=== PATIENT | male | born 1995 | race Caucasian/White ===

== ENCOUNTER 2016-10-05 16:06 | Emergency (ER) | payer BC ==
[2016-10-05 16:15] VITALS: BP 124/65
--- NOTE | 2016-10-05 16:24 | UC ---
Knee Pain HPI - HPI Summary HPI Summary: The patient comes in today for: 1. Left knee pain: Onset: Yesterday. Palliative/Provocative: Walking makes it worse. Twisting the knee will make it worse. Quality: Stiffness, pressure Region: left knee Severity: 2/10 at rest. Time: Constant. Associated symptoms: Event: While playing basketball yesterday, he jumped up and when he landed it felt like "500 pounds hitting" his leg. He collapsed. He got up and walked over to the side. Eventually, he limped to his car. He did put ice on it, elevated, it and ANAI wrap. He took 800 mg of ibuprofen which helped yesterday. He noticed that there was clicking with knee movement. No locking up or giving away. Previous injury: Strained MCL about 6 months ago. * - History of Current Complaint Chief Complaint: UCLowerExtremity Stated Complaint: LEFT KNEE INJURY Time Seen by Provider: 10/05/16 16:13 Hx Obtained From: Patient, Family/Dental Sales Representative - Allergies/Home Medications Allergies/Adverse Reactions: Allergies Allergy/AdvReac Type Severity Reaction Status Date / Time No Known Allergies Allergy Verified 10/05/16 16:14 Home Medications: Home Medications Naproxen TAB* [Naprosyn 250 mg TAB*] 500 mg PO ONCE 10/05/16 [History Confirmed 10/05/16] PMH/Surg Hx/FS Hx/Imm Hx Previously Healthy: Yes Other Endocrine History: No DM, throid disease. Other Cardiovascular History: No heart disease or HTN. Other Respiratory History: No asthma, pe Other GI/ History: No GERD, ulcers or renal failure. Other Neurological History: No seizures, or chronic headache. Other Psychological History: No depression, anxiety Other Cancer History: No cancer. Other History Of: Negative For: HIV, Hepatitis B, Hepatitis C, Anticoagulant Therapy - Surgical History Surgical History: None - Family History Known Family History: Negative: Cardiac Disease, Hypertension - Social History Occupation: Employed Full-time - needs work note., Student Alcohol Use: Rare Substance Use Type: None Smoking Status (MU): Never Smoked Tobacco Review of Systems Constitutional: Negative Skin: Negative Eyes: Negative ENT: Negative Respiratory: Negative Cardiovascular: Negative Gastrointestinal: Negative Genitourinary: Negative All Other Systems Reviewed And Are Negative: Yes Physical Exam Triage Information Reviewed: Yes Appearance: Well-Appearing, No Pain Distress, Well-Nourished Vital Signs: Initial Vital Signs Temp 98.4 F 10/05/16 16:07 Pulse 100 10/05/16 16:07 Resp 18 10/05/16 16:07 BP 124/65 10/05/16 16:07 Pulse Ox 100 10/05/16 16:07 Vital Signs Reviewed: Yes Eyes: Positive: Conjunctiva Clear. Negative: Discharge ENT: Positive: Hearing grossly normal. Negative: Pharyngeal erythema, Nasal congestion, TM bulging, TM dull, TM red, Tonsillar swelling, Tonsillar exudate Dental: Negative: Gross Decay/Caries @, Dental Fracture @ Neck: Positive: Supple, Nontender, No Lymphadenopathy. Negative: Nuchal Rigidity Respiratory: Positive: Lungs clear, No respiratory distress, No accessory muscle use. Negative: Rhonchi, Wheezing Cardiovascular: Positive: RRR, No Murmur Abdomen Description: Positive: Nontender, No Organomegaly, Soft. Negative: Distended, Guarding Musculoskeletal: Positive: ROM Limited @ - He has almost full extension, but there is flexion only to 90 degrees., Other: - LEft knee: THere is a large, tense effusion. There is no tenderness to palpation of the posterior capsule or the hamstring tendons. There is no tenderness to taping the patella. There is no marked laxity of the collateral ligaments. The drawer test was normal with no marked laxity. There is slight tenderness to palpation of the medial and lateral anterior meniscii. Neurological: Positive: Alert, Muscle Tone Normal Psychological: Positive: Age Appropriate Behavior, Consolable Skin: Negative: rashes, breakdown Diagnostics - Radiology No standard instances Xray Interpretation: Positive (See Comments) - MPRESSION: FINDINGS CONSISTENT WITH AN AVULSION FRACTURE OF THE MEDIAL PATELLA. JOINT EFFUSION. Knee Pain Course/Dx - Differential Dx/Diagnosis Differential Diagnosis/HQI/PQRI: Bursitis, Fracture (Closed), Sprain, Strain Provider Diagnoses: Avulsion fracture and joint effusion. Discharge - Discharge Plan Condition: Stable Disposition: HOME Patient Education Materials: Avulsion Fracture (ED) Referrals: Abilio Chandler MD [Medical Doctor] - 3 Days (Please wear the knee immobilizer all the time (except for possibly taking a shower) until you see the orthopedic surgeon (Dr. Chandler). Please call his office as soon as you can on Saturday. Take the naproxen as needed for pain. Untll you are seen, please keep the knee elevated and apply ice (20 minutes on and 20 minutes off) for 4-5 times a day for the first 48 hours.)
--- NOTE | 2016-10-05 17:08 | RAD ---
HISTORY: Left knee pain COMPARISONS: None VIEWS: 4, Frontal, lateral, axial, and oblique views of the left knee FINDINGS: BONE DENSITY: Normal. BONES: There is a displaced bone fragment off the medial patella. JOINTS: There is no arthropathy. There is moderate joint effusion ALIGNMENT: There is no dislocation. SOFT TISSUES: Unremarkable. OTHER FINDINGS: None. IMPRESSION: FINDINGS CONSISTENT WITH AN AVULSION FRACTURE OF THE MEDIAL PATELLA. JOINT EFFUSION.
== END 2016-10-05 17:25 | disposition home or self-care (01) ==
LOC: UCCORT 16:06
DX: S82.002A Unspecified fracture of left patella, initial encounter for closed fracture (principal); Y93.67 Activity, basketball
CPT/HCPCS: 99203; G0463